=== PATIENT | male | born 1985 | race African-American/Black ===

== ENCOUNTER 2016-10-12 08:55 | Emergency (ER) | payer SELFPAY ==
[~2016-10-12] VITALS: Ht 180.3 cm; Wt 102.0 kg
[~2016-10-12 08:55] MED LIST: AUGM875T PO
[2016-10-12 08:57] VITALS: BP 125/80; PULSE 73; RESP 16; TEMP 98.7; O2SAT 96
[2016-10-12 09:08] VITALS: BP 123/76; PULSE 71; RESP 16; TEMP 98; O2SAT 99
[2016-10-12] MEDS ORDERED: SODIUM CHLORIDE 0.9% FLUSH 10 ML FLUSH IV FLUSH PRN (09:15)
[2016-10-12] MEDS ORDERED: KETOROLAC TROMETHAMINE 30 MG/ML (IVP) VIAL IVP ONE (09:15)
[2016-10-12] MEDS ORDERED: ONDANSETRON HCL 4 MG/2 ML VIAL IVP ONE (09:15)
--- NOTE | 2016-10-12 09:31 | PD ---
HPI Chief Complaint: Fever Time Seen by Provider: 09:05 Travel History International Travel<30 days: No Contact w/Intl Traveler<30days: No Traveled to known affect area: No History of Present Illness HPI 31-year-old healthy male here with complaint of flulike symptoms. For the last day patient has been ill with cough productive of greenish sputum, subjective fevers and chills. He notes pain across the upper abdomen epigastric and left upper quadrant that is achy, associated with nausea and anorexia but no vomiting. He notes increased flatus. PFSH Past Medical History Asthma: Yes Cardiovascular Problems: No Diminished Hearing: No Musculoskeletal: No Neurologic: No Respiratory: Yes Immunizations Current: Yes Past Surgical History Cardiac Surgery: No Ear Surgery: No Endocrine Surgery: No Eye Surgery: No Genitourinary Surgery: No Gynecologic Surgery: No Oral Surgery: No Thoracic Surgery: No Social History Alcohol Use: Yes (OCC) Tobacco Use: No Substance Use: Yes (marijuana) Allergies-Medications (Allergen,Severity, Reaction): Coded Allergies: No Known Allergies (Verified , 10/12/16) Reported Meds & Prescriptions Reported Meds & Active Scripts Active No Active Prescriptions or Reported Medications Review of Systems Except as stated in HPI: all other systems reviewed are Neg Physical Exam Narrative GENERAL: Well-appearing male in no acute distress SKIN: Focused skin assessment warm/dry. HEAD: Normocephalic. EYES: No scleral icterus. No injection or drainage. ENT: Mucous membranes pink and moist. NECK: Supple CARDIOVASCULAR: Regular rate and rhythm. No murmur appreciated. RESPIRATORY: No accessory muscle use. Clear to auscultation. Breath sounds equal bilaterally. GASTROINTESTINAL: Abdomen soft, mild epigastric and left upper quadrant tenderness to palpation without rebound or guarding, no CVA tenderness MUSCULOSKELETAL: Normal gait NEUROLOGICAL: Awake and alert. Normal speech. PSYCHIATRIC: Appropriate mood and affect; insight and judgment normal. Data Data Last Documented VS Vital Signs Date Time Temp Pulse Resp B/P Pulse Ox O2 Delivery O2 Flow Rate FiO2 10/12/16 09:08 98.0 71 16 123/76 99 Room Air Orders Complete Blood Count With Diff (10/12/16 09:09) Comprehensive Metabolic Panel (10/12/16 09:09) Lipase (10/12/16 09:09) Iv Access Insert/Monitor (10/12/16 09:09) Ondansetron Inj (Zofran Inj) (10/12/16 09:15) Sodium Chloride 0.9% Flush (Ns Flush) (10/12/16 09:15) Chest, Single Ap (10/12/16 09:09) Ketorolac Inj (Toradol Inj) (10/12/16 09:15) Labs Laboratory Tests Test 10/12/16 09:20 White Blood Count 4.9 TH/MM3 Red Blood Count 5.12 MIL/MM3 Hemoglobin 14.3 GM/DL Hematocrit 42.6 % Mean Corpuscular Volume 83.3 FL Mean Corpuscular Hemoglobin 27.9 PG Mean Corpuscular Hemoglobin 33.5 % Concent Red Cell Distribution Width 13.5 % Platelet Count 213 TH/MM3 Mean Platelet Volume 8.0 FL Neutrophils (%) (Auto) 62.5 % Lymphocytes (%) (Auto) 20.4 % Monocytes (%) (Auto) 12.5 % Eosinophils (%) (Auto) 4.2 % Basophils (%) (Auto) 0.4 % Neutrophils # (Auto) 3.1 TH/MM3 Lymphocytes # (Auto) 1.0 TH/MM3 Monocytes # (Auto) 0.6 TH/MM3 Eosinophils # (Auto) 0.2 TH/MM3 Basophils # (Auto) 0.0 TH/MM3 CBC Comment DIFF FINAL Differential Comment Sodium Level 135 MEQ/L Potassium Level 3.5 MEQ/L Chloride Level 103 MEQ/L Carbon Dioxide Level 27.1 MEQ/L Anion Gap 5 MEQ/L Blood Urea Nitrogen 10 MG/DL Creatinine 0.93 MG/DL Estimat Glomerular Filtration 116 ML/MIN Rate Random Glucose 75 MG/DL Calcium Level 8.2 MG/DL Total Bilirubin 0.4 MG/DL Aspartate Amino Transf 13 U/L (AST/SGOT) Alanine Aminotransferase 18 U/L (ALT/SGPT) Alkaline Phosphatase 54 U/L Total Protein 6.6 GM/DL Albumin 3.4 GM/DL Lipase 93 U/L MDM Medical Decision Making Medical Screen Exam Complete: Yes Emergency Medical Condition: Yes Medical Record Reviewed: Yes Differential Diagnosis 31-year-old male here with 1 day of flulike symptoms and abdominal pain. Differential includes viral syndrome, influenza, bronchitis, pneumonia, gastritis, GERD, pancreatitis or hepatobiliary pathology Narrative Course Patient placed on monitor, IV established and blood obtained. Given 30 mg Toradol, 4 mg Zofran. A portable chest x-ray obtained that by my read shows no acute abnormalities. CBC, CMP, lipase unremarkable. Patient felt improved and will be discharged home. Diagnosis Primary Impression: Viral syndrome Additional Impression: Gastritis Qualified Code: K29.00 - Acute gastritis without hemorrhage, unspecified gastritis type Referrals: [facility] as needed This is a clinic that sees patients who do not have insurance. Follow-up as needed Additional Instructions: Phenergan as needed for nausea, vomiting. Zantac help with stomach acid and abdominal pain. Med/Other Pt SpecificInfo: Prescription(s) given Scripts Ranitidine (Zantac)150 Mg [id number] Mg PO DAILY #30 TAB Ref 0 Prov:Janis Helton MD 10/12/16 Promethazine (Phenergan)25 Mg [id number] Mg PO Q6H PRN (NAUSEA OR VOMITING) #10 TAB Ref 0 Prov:Janis Helton MD 10/12/16 Disposition: 01 DISCHARGE HOME Condition: Stable Janis Helton MD Oct 12, 2016 09:30
[2016-10-12 09:38] LABS: AUTOMATED NEUTROPHIL # 3.1 TH/MM3 (1.8-7.7); BASOPHIL % 0.4 % (0.0-2.0); EOSINOPHIL # 0.2 TH/MM3 (0-0.4); EOSINOPHIL % 4.2 % (0.0-4.0); HEMATOCRIT 42.6 % (39.0-51.0); HEMO FLAGS DIFF FINAL; LYMPH % 20.4 % (9.0-44.0); MEAN CELL VOLUME 83.3 FL (80.0-100.0); MEAN CORPUSCULAR HEMOGLOBIN 27.9 PG (27.0-34.0); MEAN CORPUSCULAR HGB CONC 33.5 % (32.0-36.0); MONO % 12.5 % (0.0-8.0); NEUT % 62.5 % (16.0-70.0); PLATELET COUNT 213 TH/MM3 (150-450); RED BLOOD COUNT 5.12 MIL/MM3 (4.50-5.90); RED CELL DISTRIBUTION WIDTH 13.5 % (11.6-17.2); WHITE BLOOD COUNT 4.9 TH/MM3 (4.0-11.0)
--- NOTE | 2016-10-12 09:47 | RADRPT ---
EXAM DATE/TIME: 10/12/2016 09:15 [facility] COMPARISON: No previous studies available for comparison. INDICATIONS : Chest pain. MEDICAL HISTORY : None. SURGICAL HISTORY : None. ENCOUNTER: Initial ACUITY: 1 day PAIN SCORE: 7/10 LOCATION: Bilateral chest FINDINGS: A single view of the chest demonstrates the lungs to be symmetrically aerated without evidence of mas s, infiltrate or effusion. The cardiomediastinal contours are unremarkable. Osseous structures are intact. CONCLUSION: No acute disease. Nate Thompson MD on October 12, 2016 at 9:41 Board Certified Radiologist. This report was verified electronically.
[2016-10-12 09:59] LABS: ANION GAP 5 MEQ/L (5-15); AST (GOT) 13 U/L (15-37); BICARBONATE 27.1 MEQ/L (21.0-32.0); BLOOD UREA NITROGEN 10 MG/DL (7-18); CHLORIDE 103 MEQ/L (98-107); GLOMERULAR FILTRATION RATE 116 ML/MIN (>89); POTASSIUM 3.5 MEQ/L (3.5-5.1); SODIUM (NA) 135 MEQ/L (136-145)
[2016-10-12 10:00] LABS: ALT (GPT) 18 U/L (12-78)
[2016-10-12 10:02] LABS: ALKALINE PHOSPHATASE 54 U/L (45-117); TOTAL BILIRUBIN ADULT 0.4 MG/DL (0.2-1.0)
[2016-10-12] MEDS ORDERED: ZANT150T2 PO (10:12)
[2016-10-12] MEDS ORDERED: PROM25TA10 PO (10:12)
== END 2016-10-12 10:34 | disposition home or self-care (01) ==
LOC: NEPD 08:55
DX: B34.9 Viral infection, unspecified (principal); K29.70 Gastritis, unspecified, without bleeding; J45.909 Unspecified asthma, uncomplicated
CPT/HCPCS: 71010; 80053; 83690; 85025; 96374; 96375; 99284; J1885; J2405

== ENCOUNTER 2016-12-07 12:08 | Emergency (ER) | payer SELFPAY ==
[~2016-12-07] VITALS: Ht 180.3 cm; Wt 110.0 kg
[~2016-12-07 12:08] MED LIST changes: -AUGM875T PO; +PROM25TA10 PO; +ZANT150T2 PO
[2016-12-07 12:09] VITALS: BP 137/84; PULSE 73; RESP 15; TEMP 98.7; O2SAT 98
[2016-12-07 13:55] VITALS: BP 131/64; PULSE 62; RESP 17; TEMP 97.8; O2SAT 99
[2016-12-07] MEDS ORDERED: FAMOTIDINE 20 MG TAB PO ONE (14:30)
[2016-12-07] MEDS ORDERED: SODIUM CHLOR 0.9% 1000 ML INJ 1,000 ML IV ONE (14:30)
[2016-12-07] MEDS ORDERED: ACETAMINOPHEN 500 MG CPLT PO ONE (14:30)
[2016-12-07 14:42] LABS: AUTOMATED NEUTROPHIL # 6.6 TH/MM3 (1.8-7.7); BASOPHIL % 0.4 % (0.0-2.0); EOSINOPHIL # 0.3 TH/MM3 (0-0.4); EOSINOPHIL % 3.2 % (0.0-4.0); HEMATOCRIT 43.4 % (39.0-51.0); HEMO FLAGS DIFF FINAL; LYMPHOCYTE # 2.6 TH/MM3 (1.0-4.8); MEAN CELL VOLUME 84.7 FL (80.0-100.0); MEAN CORPUSCULAR HEMOGLOBIN 28.8 PG (27.0-34.0); MONO % 7.1 % (0.0-8.0); NEUT % 64.3 % (16.0-70.0); PLATELET COUNT 273 TH/MM3 (150-450); RED BLOOD COUNT 5.13 MIL/MM3 (4.50-5.90); RED CELL DISTRIBUTION WIDTH 13.4 % (11.6-17.2); WHITE BLOOD COUNT 10.3 TH/MM3 (4.0-11.0)
--- NOTE | 2016-12-07 14:45 | RADRPT ---
EXAM DATE/TIME: 12/07/2016 14:20 [facility] COMPARISON: CHEST SINGLE AP, October 12, 2016, 9:15. INDICATIONS : Chest pain x 1 day. MEDICAL HISTORY : None. SURGICAL HISTORY : None. ENCOUNTER: Initial ACUITY: 1 day PAIN SCORE: 10/10 LOCATION: Bilateral chest FINDINGS: A single view of the chest demonstrates the lungs to be symmetrically aerated without evidence of mas s, infiltrate or effusion. The cardiomediastinal contours are unremarkable. Osseous structures are intact. CONCLUSION: No acute disease. Mario Hillman Jr., MD on December 07, 2016 at 14:43 Board Certified Radiologist. This report was verified electronically.
[2016-12-07 14:48] LABS: ALKALINE PHOSPHATASE 55 U/L (45-117); TOTAL BILIRUBIN ADULT 0.6 MG/DL (0.2-1.0)
[2016-12-07 14:51] LABS: ALT (GPT) 20 U/L (12-78); ANION GAP 7 MEQ/L (5-15); AST (GOT) 16 U/L (15-37); BICARBONATE 28.6 MEQ/L (21.0-32.0); BLOOD UREA NITROGEN 14 MG/DL (7-18); CHLORIDE 105 MEQ/L (98-107); GLOMERULAR FILTRATION RATE 86 ML/MIN (>89); POTASSIUM 4.6 MEQ/L (3.5-5.1); SODIUM (NA) 141 MEQ/L (136-145)
[2016-12-07] MEDS ORDERED: RANI150T PO (17:14)
--- NOTE | 2016-12-07 17:14 | PD ---
HPI Chief Complaint: Chest Pain Time Seen by Provider: 13:36 Travel History International Travel<30 days: No Contact w/Intl Traveler<30days: No Traveled to known affect area: No History of Present Illness HPI 31-year-old man who presents to the emergency department complaining of chest pain stomach pain migraines with some tooth pain towards the past couple days. States he feels sick. 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 No nausea vomiting or diarrhea. Does take NSAIDs daily. Pain is more epigastric. No alcohol use. History Past Medical History Medical History: Denies Significant Hx Tetanus Vaccination: < 5 Years Influenza Vaccination: Yes Social History Alcohol Use: Yes (OCC) Tobacco Use: Yes (10 cigarrettes per day) Allergies-Medications (Allergen,Severity, Reaction): Coded Allergies: No Known Allergies (Verified , 12/07/16) Reported Meds & Prescriptions Reported Meds & Active Scripts Active No Active Prescriptions or Reported Medications Review of Systems Except as stated in HPI: all other systems reviewed are Neg Physical Exam Narrative GENERAL: Well-appearing 31-year-old man SKIN: Focused skin assessment warm/dry. HEAD: Atraumatic. Normocephalic. EYES: Pupils equal and round. No scleral icterus. No injection or drainage. ENT: No nasal bleeding or discharge. Mucous membranes pink and moist. NECK: Trachea midline. No JVD. CARDIOVASCULAR: Regular rate and rhythm. No murmur appreciated. RESPIRATORY: No accessory muscle use. Clear to auscultation. Breath sounds equal bilaterally. GASTROINTESTINAL: Abdomen soft, non-tender, nondistended. Hepatic and splenic margins not palpable. MUSCULOSKELETAL: No obvious deformities. No clubbing. No cyanosis. No edema. NEUROLOGICAL: Awake and alert. No obvious cranial nerve deficits. Motor grossly within normal limits. Normal speech. PSYCHIATRIC: Appropriate mood and affect; insight and judgment normal. Data Data Last Documented VS Vital Signs Date Time Temp Pulse Resp B/P (MAP) Pulse Ox O2 Delivery O2 Flow Rate FiO2 12/07/16 13:55 97.8 62 17 131/64 (86) 99 Room Air Orders Orders Complete Blood Count With Diff (12/07/16 14:17) Comprehensive Metabolic Panel (12/07/16 14:17) Lipase (12/07/16 14:17) Chest, Single Ap (12/07/16 ) Iv Access Insert/Monitor (12/07/16 14:17) Sodium Chlor 0.9% 1000 Ml Inj (Ns 1000 M (12/07/16 14:30) Famotidine (Pepcid) (12/07/16 14:30) Acetaminophen (Tylenol) (12/07/16 14:30) Labs Laboratory Tests Test 12/07/16 14:20 White Blood Count 10.3 TH/MM3 Red Blood Count 5.13 MIL/MM3 Hemoglobin 14.8 GM/DL Hematocrit 43.4 % Mean Corpuscular Volume 84.7 FL Mean Corpuscular Hemoglobin 28.8 PG Mean Corpuscular Hemoglobin Concent 34.0 % Red Cell Distribution Width 13.4 % Platelet Count 273 TH/MM3 Mean Platelet Volume 8.2 FL Neutrophils (%) (Auto) 64.3 % Lymphocytes (%) (Auto) 25.0 % Monocytes (%) (Auto) 7.1 % Eosinophils (%) (Auto) 3.2 % Basophils (%) (Auto) 0.4 % Neutrophils # (Auto) 6.6 TH/MM3 Lymphocytes # (Auto) 2.6 TH/MM3 Monocytes # (Auto) 0.7 TH/MM3 Eosinophils # (Auto) 0.3 TH/MM3 Basophils # (Auto) 0.0 TH/MM3 CBC Comment DIFF FINAL Differential Comment Blood Urea Nitrogen 14 MG/DL Creatinine 1.21 MG/DL Random Glucose 79 MG/DL Total Protein 7.5 GM/DL Albumin 4.0 GM/DL Calcium Level 9.1 MG/DL Alkaline Phosphatase 55 U/L Aspartate Amino Transf (AST/SGOT) 16 U/L Alanine Aminotransferase (ALT/SGPT) 20 U/L Total Bilirubin 0.6 MG/DL Sodium Level 141 MEQ/L Potassium Level 4.6 MEQ/L Chloride Level 105 MEQ/L Carbon Dioxide Level 28.6 MEQ/L Anion Gap 7 MEQ/L Estimat Glomerular Filtration Rate 86 ML/MIN Lipase 71 U/L MDM Medical Decision Making Medical Screen Exam Complete: Yes Emergency Medical Condition: Yes Interpretation(s) Chest x-ray unremarkable Review of EKG, unremarkable Labs unremarkable Differential Diagnosis Gastritis, chest pain, pneumothorax, shortness of breath, PE, URI, viral syndrome, other Narrative Course Medical decision making This 31 year-old woman presents emergent part nonspecific chest abdominal pain associated with wisdom tooth pain and headache. He has gastritis as a cause. This all started when he was at work that he just didn't feel well enough to work. Recommend outpatient follow-up. Diagnosis Primary Impression: Gastritis Additional Instructions: Take ranitidine as prescribed. Use [id number] Tylenol as needed for pain. Follow-up with her primary doctor in the next 2-4 days. Return to the emergency department for any new or worsening symptoms. Scripts Ranitidine (Ranitidine) 150 Mg Tab 150 MG PO BID for Heartburn Management, #60 TAB 0 Refills Prov: Niall Duncan MD 12/07/16 Disposition: 01 DISCHARGE HOME Condition: Stable Niall Duncan MD Dec 07, 2016 17:14
[2016-12-07 17:20] VITALS: BP 124/81; TEMP 97.9
--- NOTE | 2016-12-08 18:43 | EKG ---
Date Performed: 12/07/2016 Time Performed: 12:21:20 PTAGE: 31 years EKG: SINUS BRADYCARDIA BORDERLINE ECG PREVIOUS TRACING : 12/07/2016 06.45 DOCTOR: Ronni Cannon Interpretating Date/Time 12/08/2016 18:42:50
== END 2016-12-07 17:46 | disposition home or self-care (01) ==
LOC: NEPD 12:08
DX: K29.70 Gastritis, unspecified, without bleeding (principal); R51 Headache; K08.89 Other specified disorders of teeth and supporting structures; R00.1 Bradycardia, unspecified; F17.210 Nicotine dependence, cigarettes, uncomplicated
CPT/HCPCS: 71010; 80053; 83690; 85025; 93005; 96360; 99284; J7030

== ENCOUNTER 2017-09-26 18:23 | Emergency (ER) | payer OTHER ==
[~2017-09-26] VITALS: Ht 180.3 cm; Wt 78.0 kg
[~2017-09-26 18:23] MED LIST changes: -PROM25TA10 PO; +RANI150T PO; -ZANT150T2 PO
[2017-09-26 20:01] VITALS: BP 141/88; PULSE 74; RESP 20; TEMP 98.8; O2SAT 100
--- NOTE | 2017-09-26 20:55 | RADRPT ---
EXAM DATE: 09/26/2017 8:49 PM EDT AGE/SEX: 32 years / Male INDICATIONS: Twisted ankle this evening at work. CLINICAL DATA: This is the patient's initial encounter. Patient reports that signs and symptoms have been present for 1 day and indicates a pain score of 10/10. MEDICAL/SURGICAL HISTORY: None. None. COMPARISON: No prior exams available for comparison. FINDINGS: Views left ankle demonstrate extensive soft tissue swelling medially. No fracture. Ankle mortise inta ct. CONCLUSION: Soft tissue swelling without fracture. Electronically signed by: Rafa Hackett MD 09/26/2017 8:54 PM EDT
[2017-09-26] MEDS ORDERED: DICL75TA PO (21:09)
[2017-09-26] MEDS ORDERED: NORC5TAB PO (21:09)
[2017-09-26] MEDS ORDERED: ACETAMINOPHEN/HYDROcodone 325 MG/5 MG TAB PO ONE (21:15)
[2017-09-26] MEDS ORDERED: IBUPROFEN 800 MG TAB PO ONE (21:15)
--- NOTE | 2017-09-26 21:15 | PD ---
HPI Chief Complaint: Injury Time Seen by Provider: 21:01 (Charles Hightower) Time Seen by Provider: 21:01 (Alessandro Montaño MD) Travel History International Travel<30 days: No Contact w/Intl Traveler<30days: No Traveled to known affect area: No (Charles Hightower) History of Present Illness HPI 32-year-old black male presents emergency department with complains of left ankle pain after inversion injury at work today around 1:00. He states that he went to an urgent care was referred to the ER because they did not have an x- ray machine. He states the pain is moderate but can be severe with attempting to weight-bear. Patient denies any injury to his head, neck or back. Worse with weightbearing. Some relief with elevation. (Charles Hightower) PFS Past Medical History Asthma: Yes Cardiovascular Problems: No Diminished Hearing: No GERD: Yes Musculoskeletal: No Neurologic: No Respiratory: Yes Immunizations Current: Yes Tetanus Vaccination: < 5 Years Influenza Vaccination: Yes (Charles Hightower) Past Surgical History Surgical History: No Previous Surgery Cardiac Surgery: No Ear Surgery: No Endocrine Surgery: No Eye Surgery: No Genitourinary Surgery: No Gynecologic Surgery: No Oral Surgery: No Thoracic Surgery: No (Charles Hightower) Social History Alcohol Use: Yes (OCC) Tobacco Use: Yes (10 cigarrettes per day) Substance Use: Yes (marijuana) (Charles Hightower) Allergies-Medications (Allergen,Severity, Reaction): Coded Allergies: No Known Allergies (Verified Adverse Reaction, Unknown, 09/26/17) Reported Meds & Prescriptions Reported Meds & Active Scripts Active Orlando (Hydrocodone-Acetaminophen) 5 Mg-325 Mg Tab 1 Tab PO Q8HR PRN Diclofenac Sodium DR (Diclofenac Sodium) 75 Mg Tabdr 75 Mg PO BID (Alessandro Montaño MD) Review of Systems General / Constitutional: No: Fever Eyes: No: Visual changes HENT: No: Headaches Cardiovascular: No: Chest Pain or Discomfort Respiratory: No: Shortness of Breath Gastrointestinal: No: Abdominal Pain Genitourinary: No: Dysuria Musculoskeletal: Positive: Arthralgias, Limited ROM, Edema, Pain Skin: No Rash Neurologic: No: Weakness Psychiatric: No: Depression Endocrine: No: Polydipsia Hematologic/Lymphatic: No: Easy Bruising (Charles Hightower) Physical Exam Narrative GENERAL: Well-developed, well-nourished in no acute distress. Nontoxic appearing. HEAD: Normocephalic, atraumatic. EYES: Pupils equal round and reactive. Extraocular motions intact. No scleral icterus. No injection or drainage. ENT: TMs clear without erythema. The external auditory canals clear. Nose: clear . Posterior pharynx is pink and moist. No tonsillar edema or exudate. Uvula midline. Airway patent. NECK: Trachea midline.Supple, nontender, moves head freely. No central bony tenderness or spasm. CARDIOVASCULAR: Regular rate and rhythm without murmurs, gallops, or rubs. RESPIRATORY: Clear to auscultation. Breath sounds equal bilaterally. No wheezes , rales, or rhonchi. GASTROINTESTINAL: Abdomen soft, non-tender, nondistended. No hepato-splenomegaly , or palpable masses. No guarding. EXTREMITIES: Examination of left lower extremity reveals a large amount of swelling to the ankle. He complains of pain both to the medial and lateral components of the ankle. Patient's skin is intact. No ecchymosis. Good pulses. No gross instability. No pain in the heel, Achilles, forefoot or toes. No pain in the knee or hip. The right lower extremity as well as the upper extremities are unremarkable for acute bony tenderness or deformity. Neurovascular intact. BACK: Nontender without deformity or crepitance. No flank tenderness. (Charles Hightower) Data Data Last Documented VS Vital Signs Date Time Temp Pulse Resp B/P (MAP) Pulse Ox O2 Delivery O2 Flow Rate FiO2 09/26/17 20:01 98.8 74 20 141/88 (105) 100 (Alessandro Montaño MD) Orders Orders Ankle, Complete ([id number]) (09/26/17 ) Ice/Cold Pack (09/26/17 21:07) Splint Or Brace Apply/Monitor (09/26/17 21:07) Crutches (09/26/17 21:07) Acetamin-Hydrocod 325-5 Mg ([place] 5-325 (09/26/17 21:15) Ibuprofen (Motrin) (09/26/17 21:15) Ed Discharge Order (6/14/18 21:10) Fiberglass Short Leg Splint Ad (09/26/17 ) (Alessandro Montaño MD) MDM Medical Decision Making Medical Screen Exam Complete: Yes Emergency Medical Condition: Yes Medical Record Reviewed: Yes Interpretation(s) Last 24 hours Impressions Ankle X-Ray 09/26/17 0000 Signed Impressions: CONCLUSION: Soft tissue swelling without fracture. Differential Diagnosis MDM: High Differential diagnoses: Fracture, sprain, strain, dislocation, contusion, neurovascular injury Narrative Course Patient's given [place] 5 mg and Motrin 800 mg p.o. X-rays negative for bony injury. Positive soft tissue swelling. Patient was placed in a Salgado compression dressing as well as given crutches. This is severe left ankle sprain (Charles Hightower) Diagnosis Primary Impression: Severe sprain of left ankle Qualified Codes: S93.402A - Sprain of unspecified ligament of left ankle, initial encounter Patient Instructions: General Instructions, Narcotic given in the ED Additional Instructions: Rest. Elevation. Ice packs for the next 3 days. Dominik wrap and crutches. No weight-bearing and then progress to weight-bearing as tolerated. Medications as directed Follow-up with an orthopedist or your doctor in one week. Return to the ER if any problems Med/Other Pt SpecificInfo: Prescription(s) given (Charles Hightower) Scripts Hydrocodone-Acetaminophen (Or[place]) 5 Mg-325 Mg Tab 1 TAB PO Q8HR Y for PAIN, #6 TAB 0 Refills Prov: Alessandro Montaño MD 09/26/[address] (Diclofenac Sodium DR) 75 Mg Tabdr 75 MG PO BID, #20 TAB 0 Refills Prov: Alessandro Montaño MD 09/26/17 Disposition: 01 DISCHARGE HOME Condition: Stable Charles Hightower Sep 26, 2017 21:15 Alessandro Montaño MD Sep 27, 2017 00:47
== END 2017-09-26 21:47 | disposition home or self-care (01) ==
LOC: NEPD 18:23
DX: S93.402A Sprain of unspecified ligament of left ankle, initial encounter (principal); X58.XXXA Exposure to other specified factors, initial encounter; Y99.0 Civilian activity done for income or pay; J45.909 Unspecified asthma, uncomplicated; K21.9 Gastro-esophageal reflux disease without esophagitis; F17.210 Nicotine dependence, cigarettes, uncomplicated
CPT/HCPCS: 29515; 73610; 99283; E0113